=== PATIENT | male | born 1985 | race Caucasian/White ===

== ENCOUNTER → 2020-10-22 | Outpatient (CLI) | payer BC ==
[2020-10-22 08:49] LABS: Hematocrit 43.8 % (41.0-53.0)
[2020-10-22 09:28] LABS: Albumin 4.1 g/dL (3.4-5.0); Calcium 8.9 mg/dL (8.5-10.1); Potassium 4.4 mmol/L (3.5-5.1); Uric Acid 6.2 mg/dL (3.5-7.2)
[2020-10-22 09:33] LABS: BUN/Creatinine Ratio 8.5; Bilirubin, Total 0.6 mg/dL (0.2-1.0); Total Protein 7.2 g/dL (6.4-8.2)
[2020-10-22 09:38] LABS: Free T3 3.05 pg/mL (2.3-4.2); Free T4 (Free Thyroxine) 1.07 ng/dL (0.89-1.76); T3 Total 1.21 ng/mL (0.60-1.81)
[2020-10-22 09:39] LABS: Follicle Stimulating Hormone 1.92 IU/L (1.4-18.1)
== END | disposition home or self-care (01) ==
LOC: LAB 08:08
PROVIDERS: ATTEND Internal Medicine
DX: E61.2 Magnesium deficiency (principal); R82.90 Unspecified abnormal findings in urine; R94.6 Abnormal results of thyroid function studies; E55.9 Vitamin D deficiency, unspecified; D51.9 Vitamin B12 deficiency anemia, unspecified; R73.09 Other abnormal glucose; E78.49 Other hyperlipidemia; R68.89 Other general symptoms and signs; E79.0 Hyperuricemia without signs of inflammatory arthritis and tophaceous disease
CPT/HCPCS: 36415; 80053; 80061; 82607; 83001; 83036; 83970; 84439; 84480; 84481; 84550; 85014; 85018